=== PATIENT | female | born 1995 | race Caucasian/White ===

== ENCOUNTER 2022-01-08 08:28 | Inpatient (IN) ==
[2022-01-08] MEDS ORDERED: PENICILLIN G POTASSIUM 6 MU in DEXTROSE 5% 250 ML IV STA (09:06)
[2022-01-08] MEDS ORDERED: OXYTOCIN 30 UNITS/500 ML BAG IV PRN ×3 (09:06→17:48)
[2022-01-08] MEDS ORDERED: LACTATED RINGER'S 1,000 ML IV PRN (09:06)
[2022-01-08] MEDS ORDERED: LIDOCAINE 1% LOCAL 20 ML VIAL INFIL PRN (09:06)
--- NOTE | 2022-01-08 09:12 | History & Physical Report ---
Date of Service January 08, 2022 Assessment & Plan (1) Spontaneous rupture of amniotic membranes: Plan: 6-year-old -0-1-0 at 39 weeks of gestation presenting with spontaneous rupture of membranes, regular contractions, GBS positive, Vital signs stable afebrile, heart rate reassuring, Early labor with regular contractions, Plan to admit, monitor, labs, IV fluids, IV penicillin for GBS, expectant management for 2 to 3 hours and then recheck for possible augmentation with oxytocin, Epidural for pain per patient request, All questions were answered. (2) Uterine contractions: (3) GBS (group B Streptococcus carrier), +RV culture, currently : History of Present Illness Primary Care Provider: Joce Simmons MD Patient is a 26-year-old -0-1-0 at 39 weeks of gestation who has been feeling contractions since yesterday afternoon. She woke up with around 5 AM and also had a big gush of fluid leakage. Contractions became more regular and painful. She had minimal bleeding initially and then has been leaking clear fluids. She reports good movements. She denies fever, chills, headache, change in her vision, nausea or vomiting. Her has been uncomplicated except GBS positive. Allergies Allergy/AdvReac Type Severity Reaction Status Date / Time nickel Allergy Mild Rash Verified 12/26/21 21:55 grape Allergy Swelling Verified 12/26/21 21:55 of Lip/Tongue/Throat Home Medications Medication Instructions Recorded Confirmed Type vit no.95-ferrous 1 tab PO DAILY 05/29/20 12/26/21 History fumarate 28 mg-folic acid 800 mcg tablet () ferrous sulfate 325 mg (65 mg 325 mg PO DAILY 11/24/21 12/26/21 History iron) tablet (iron) Patient History Medical History Anxiety and depression No known health problems Surgical History H/O dilation and curettage [place] teeth removed Family History Grandfather (Maternal) Family history of diabetes mellitus Family history of esophageal cancer Other No family history of adverse response to anesthesia Social History Smoking Status: Former smoker Tobacco Type: Cigarettes Cigarettes Per Day: AWARE NOT TO SMOKE/NPO; Second Hand Exposure: Yes; Hx Alcohol Use: No Hx Substance Use: No Preferred Language: Romanian Communication Ability: Effective Visual Impairment: No Limitations Hearing Ability: Normal Wax Ball Molder Required: No Beliefs That Will Affect Care: None marital status: Current Living Situation: Spouse Current Living Situation Comment: 8yo daughter (FT- stepdaughter) 14yo son (PT stepson) current occupational status: unemployed and other current occupation: Homemaker Other Information That Helps Us Care for You: No Feels Safe at Home: Yes Safety Concerns: Feels Safe At This Time caffeine: Yes Dental Care, Regularly: Yes Physical Activity Frequency: Does not Exercise Seatbelt Use: always Sunscreen Use: Yes Do you think of yourself as: straight/heterosexual Sexual Activity: has been sexually active within the last 12 months Gender Identity: Female Assistive Devices: None Review of Systems as per Subjective / HPI Physical Exam Constitutional: WD/WN, vitals as above well developed, well nourished and + acute distress (With contractions only) Genitourinary: normal external appearance OB Exam Abdomen: + vertex Manual OB Exam: + cervical dilation 2 cm, + cervical effacement 50% and + station -2 OB Exam Monitor Tracing: + external uterine monitor used and + category I Patient came with a large pad which is heavy and nitrazine positive Results & Data ([facility]) Vital Signs (Past 12 Hours) Vital Signs Temp Pulse Resp BP 01/08/22 08:40 36.5 C 20 01/08/22 08:34 92 H 137/78
[2022-01-08 09:43] LABS: Hematocrit (blood only) 38.2 % (34.1-44.9); Hemoglobin 13.1 g/dl (12.0-16.0); Mean Corpuscular Hemoglobin 31.8 pg (25.0-34.0); Mean Corpuscular Hgb Conc 34.3 g/dL (32.0-36.0); Mean Corpuscular Volume 92.7 fL (80.0-100.0); Mean Platelet Volume 10.6 fL (9.4-12.3); Platelet Count 188 K/uL (130-400); RDW Coefficient of Variation 13.7 % (11.5-14.5); RDW Standard Deviation 46.4 fL (36.4-46.3); Red Blood Count 4.12 M/uL (3.93-5.22); White Blood Count 10.55 K/ul (4.8-10.8)
[2022-01-08 10:08] LABS: Alanine Aminotransferase 10 U/L (7-52); Albumin Globulin Ratio 1.2 (0.9-2); Albumin Level 3.7 gm/dl (3.4-5.0); Alkaline Phosphatase 173 U/L (34-104); Anion Gap 8 (3-11); Aspartate Aminotransferase 13 U/L (13-39); BUN Creatinine Ratio 25.6 (10-20); Bilirubin,Total 0.3 mg/dl (0.2-1.0); Blood Urea Nitrogen 11 mg/dl (6-23); Calcium 8.9 mg/dl (8.5-10.1); Carbon Dioxide 19 mmol/L (21-32); Chloride 107 mmol/L (98-107); Creatinine Clr Calc Pharmacy 213.5 ml/min; Est GFR (African American) > 150.0 ml/min; Est GFR (Non-African American) 140.4 ml/min; Globulin 3.1 gm/dl (2.5-4.0); Glucose 92 mg/dl (70-99(Fasting)); Sodium 134 mmol/L (136-145); Total Protein 6.8 gm/dl (6.0-8.3)
[2022-01-08] MEDS ORDERED: PENICILLIN G POTASSIUM 3 MU in DEXTROSE 5% 100 ML IV PRN (12:07)
[2022-01-08] MEDS ORDERED: SODIUM CHLORIDE 0.9% INJ 10 ML VIAL ONE (12:29)
[2022-01-08] MEDS ORDERED: BUPIVACAINE 0.25% 30 ML VIAL ONE (12:29)
[2022-01-08] MEDS ORDERED: LIDOCAINE 2%/EPINEPHRINE 1:200,000 20 ML SDV ONE (12:29)
[2022-01-08] MEDS ORDERED: ePHEDrine sulfate 50 MG/ML AMP ONE (12:29)
[2022-01-08] MEDS ORDERED: fentaNYL citrate 100 MCG/2 ML VIAL ONE (12:29)
[2022-01-08] MEDS ORDERED: fentaNYL 2MCG/ML ROPIVACAINE 1.25MG/ML 100 ML BAG EPI ONE (12:30)
[2022-01-08] MEDS ORDERED: PROMETHAZINE HCL 6.25 MG in SODIUM CHLORIDE 0.9% 50 ML IV PRN (13:20)
[2022-01-08] MEDS ORDERED: fentaNYL 2MCG/ML ROPIVACAINE 1.25MG/ML 100 ML BAG EPI PRN (13:20)
[2022-01-08] MEDS ORDERED: NALOXONE HCL 1 MG in SODIUM CHLORIDE 0.9% 1000ML 1,000 ML IV PRN (13:20)
[2022-01-08] MEDS ORDERED: ONDANSETRON INJ 2 MG/ML 2 ML VIAL IV PRN (13:20)
[2022-01-08] MEDS ORDERED: ePHEDrine sulfate 50 MG/ML AMP IV PRN (13:20)
[2022-01-08] MEDS ORDERED: diphenhydrAMINE 50 MG/ML VIAL IV PRN (13:20)
[2022-01-08] MEDS ORDERED: NALOXONE HCL 0.4 MG/1 ML VIAL/CARP IV PRN (13:20)
[2022-01-08] MEDS ORDERED: NALBUPHINE HCL INJ 10 MG/ML AMP IV PRN (13:20)
--- NOTE | 2022-01-08 13:20 | Anesthesiology Consultation ---
Date of Service January 08, 2022 Assessment & Plan Chart Review Chart Review: Patient NOT seen in Pre Admission Testing and Acceptable Risk for Labor Epidural Consults Requested none ASA ASA2 Proposed Anesthesia Anesthesia Type: Labor Epidural Risk / Benefits Reviewed With: PT / POA / Parent / Guardian, Accepts Plan and Informed Consent Obtained History Height/Weight Height: 5 ft 4 in Weight: 88.451 kg Allergies Allergy/AdvReac Type Severity Reaction Status Date / Time nickel Allergy Mild Rash Verified 01/08/22 11:09 grape Allergy Swelling Verified 01/08/22 11:09 of Lip/Tongue/Throat latex AdvReac Rash Verified 01/08/22 11:10 Medications Home Medications Medication Instructions Recorded Confirmed Last Taken vit no.95-ferrous 1 tab PO DAILY 05/29/20 01/08/22 01/07/22 12:00 fumarate 28 mg-folic acid 800 mcg tablet () ferrous sulfate 325 mg (65 mg 325 mg PO DAILY 11/24/21 01/08/22 01/07/22 12:00 iron) tablet (iron) Active Medications Generic Name Dose Route Start Last Admin Trade Name Desiree PRN Reason Stop Dose Admin Lactated Ringer's 1,000 mls @ 150 mls/hr 01/08/22 09:06 01/08/22 12:01 Lr IV 01/10/22 09:05 150 mls/hr .[id number] PRN Administration L&D Protocol Protocol Oxytocin 30 units in 500 mls @ 2 mls/hr 01/08/22 09:47 01/08/22 12:10 Pitocin IV 01/10/22 09:46 0.12 units/hr .Q24H PRN 2 mls/hr Labor Induction/Augmentation Administration Protocol 0.12 UNITS/HR Past Medical History Medical History Anxiety and depression No known health problems Exercise / Class Metabolic Activity II 4-5 Yardwork/Stairs/Walk up hill Past Family History Family History Grandfather (Maternal) Family history of diabetes mellitus Family history of esophageal cancer Other No family history of adverse response to anesthesia Past Surgical History Surgical History (Reviewed 01/08/22 @ 09:09 by JESSICA Cadena H/O dilation and curettage [place] teeth removed Past Anesthesia History No Hx of Anesthesia Complications and No Family Hx of Anesthesia Complications History of PONV No Hx of PONV and No Hx of Motion Sickness Social History Smoking Status: Former smoker tobacco type: cigarettes Smoking cigarettes per day: AWARE NOT TO SMOKE/NPO Hx Alcohol Use: No Hx Substance Use: No substance use type: does not use Physical Exam Vital Signs Last Vital Signs Temp 36.6 C 01/08/22 10:46 Pulse 104 H 01/08/22 13:16 Resp 20 01/08/22 10:46 BP 138/80 01/08/22 13:16 Pulse Ox 100 01/08/22 13:16 ENMT Mouth: no dentition abnormality Thyromental Distance: > or= 3.5 Finger Breadths Mallampati Class: II Neck normal visual inspection Respiratory normal respiratory effort Auscultation: lungs clear to auscultation bilaterally Cardiovascular Rate/Rhythm: regular rate and regular rhythm Psychiatric Orientation: alert Testing Laboratory Results 01/08/22 09:25 01/08/22 09:25
--- NOTE | 2022-01-08 15:46 | Obstetrical Progress Note ---
Date of Service January 08, 2022 Assessment & Plan Admission and Anticipated Discharge Date Admission Date: January 08, 2022 Subjective Patient is revaluated. Oxytocin was started and she has received epidural for pain. Feels pressure VSS Afebrile FHR categ I, started to have mild early decels with some of the contractions [place] ctxs q 2-3 min VE: 9/ 90%/ 0 Continue to monitor closely Anticipate . Results & Data ([facility]) Vital Signs (Past 12 Hours) Vital Signs Temp Pulse Resp BP Pulse Ox 01/08/22 08:40 36.5 C 20 01/08/22 15:41 99 01/08/22 15:41 100 H 01/08/22 15:39 100 H 01/08/22 15:39 117/71 01/08/22 15:36 100 01/08/22 15:36 98 H 01/08/22 15:31 99 01/08/22 15:31 90 01/08/22 15:26 100 01/08/22 15:26 91 H 01/08/22 15:25 85 01/08/22 15:25 110/61 01/08/22 15:24 90 01/08/22 15:24 94 H 01/08/22 15:21 100 01/08/22 15:21 91 H 01/08/22 15:16 98 01/08/22 15:16 87 01/08/22 15:11 100 01/08/22 15:11 93 H 01/08/22 15:10 97 H 01/08/22 15:10 96/61 L 01/08/22 15:06 100 01/08/22 15:06 110 H 01/08/22 15:01 100 01/08/22 15:01 97 H 01/08/22 14:56 100 01/08/22 14:56 82 01/08/22 14:56 108/66 01/08/22 14:51 100 01/08/22 14:51 98 H 01/08/22 14:35 20 01/08/22 14:35 20 01/08/22 14:46 100 01/08/22 14:46 80 01/08/22 14:41 100 01/08/22 14:41 88 01/08/22 14:41 95 H 01/08/22 14:41 96/60 L 01/08/22 14:36 100 01/08/22 14:36 91 H 01/08/22 12:52 36.8 C 01/08/22 13:20 20 01/08/22 13:20 20 01/08/22 13:35 20 01/08/22 13:35 20 01/08/22 13:50 20 01/08/22 13:50 20 01/08/22 14:05 20 01/08/22 14:05 20 01/08/22 14:20 20 01/08/22 14:20 20 01/08/22 14:31 100 01/08/22 14:31 95 H 01/08/22 14:26 100 01/08/22 14:26 76 01/08/22 14:25 101 H 01/08/22 14:25 101/64 01/08/22 14:21 100 01/08/22 14:21 81 01/08/22 14:16 100 01/08/22 14:16 80 01/08/22 14:11 100 01/08/22 14:11 98 H 01/08/22 14:11 105/68 01/08/22 14:06 100 01/08/22 14:06 103 H 01/08/22 14:01 100 01/08/22 14:01 98 H 01/08/22 13:56 100 01/08/22 13:56 88 01/08/22 13:56 112/67 01/08/22 13:51 100 01/08/22 13:51 97 H 01/08/22 13:46 100 01/08/22 13:46 99 H 01/08/22 13:41 100 01/08/22 13:41 107 H 01/08/22 13:41 96 H 01/08/22 13:41 118/83 01/08/22 13:36 100 01/08/22 13:36 114 H 01/08/22 13:31 100 01/08/22 13:31 106 H 01/08/22 13:26 100 01/08/22 13:26 123 H 01/08/22 13:24 113 H 01/08/22 13:24 135/76 01/08/22 13:21 100 01/08/22 13:21 107 H 01/08/22 13:19 100 H 01/08/22 13:19 132/88 01/08/22 13:16 100 01/08/22 13:16 104 H 01/08/22 13:16 138/80 01/08/22 13:14 116 H 01/08/22 13:14 143/79 H 01/08/22 13:12 109 H 01/08/22 13:12 163/82 H 01/08/22 13:11 100 01/08/22 13:11 99 H 01/08/22 13:11 125/78 01/08/22 13:06 100 01/08/22 13:06 100 H 01/08/22 13:01 100 01/08/22 13:01 86 01/08/22 12:56 100 01/08/22 12:56 78 01/08/22 12:51 100 01/08/22 12:51 84 01/08/22 12:46 100 01/08/22 12:46 87 01/08/22 12:46 90 01/08/22 12:46 139/84 01/08/22 12:09 93 H 01/08/22 12:09 132/89 01/08/22 10:46 20 01/08/22 10:46 36.6 C 20 01/08/22 10:49 90 01/08/22 10:49 133/90 01/08/22 08:34 92 H 137/78
[2022-01-08] MEDS ORDERED: MINERAL OIL 30 ML UDC ONE ×2 (17:10→17:25)
[2022-01-08] MEDS ORDERED: DIPHTHERIA/TETANUS/PERTUSSIS 0.5 ML SYR/VIAL IM ONE (17:48)
[2022-01-08] MEDS ORDERED: HYDROCORTISONE ACETATE 25 MG SUPP PR PRN (17:48)
[2022-01-08] MEDS ORDERED: bisacodyL 10 MG SUPP PR PRN (17:48)
[2022-01-08] MEDS ORDERED: miSOPROStoL 200 MCG TAB PR ONE (17:48)
[2022-01-08] MEDS ORDERED: MEASLES, MUMPS & RUBELLA VIRUS VIAL SQ ONE (17:48)
[2022-01-08] MEDS ORDERED: BENZOCAINE 20% AER SPR 82.5 GM CAN EXT PRN (17:48)
--- NOTE | 2022-01-08 17:52 | Delivery Summary ---
Vaginal Delivery Summary Date of Service January 08, 2022 Vaginal Delivery Summary Patient was found to be fully dilated and desired to push. She pushed through several contractions and delivered the head difficulty. There was a nuchal cord around the neck x1 which was reduced. Then the shoulders were treated with delivered with minimal traction and the baby was handed to mother that her mouth and nose were suctioned, the cord was clamped times and cut at 1 minute delay. The baby was vigorously moving and crying at that point. The cord blood was obtained. The vagina and perineum were checked for lacerations. there was only first-degree labial laceration on both sides but the vagina and perineum were intact. Post labial lacerations were repaired with 3-0 Vicryl on SH needle in a continuous fashion and excellent hemostasis was achieved. The placenta was found to be in vagina, delivered spontaneously as intact and complete. Uterus was explored and found to be empty, lower segment was cleared of all clots and debris's, fundus was firm and EBL was 200 mL. Mom and baby tolerated procedure well. Sponge needle and instrument count was correct x2. There was a viable female infant, Apgars 8/9 and weight is pending. No complications happened and I was present during whole procedure.
--- NOTE | 2022-01-08 19:14 | Anesthesia Procedure Note ---
Date of Service January 08, 2022 Anesthesia Post Epidural Note Vital Signs Vital Signs: Temp Pulse Resp BP Pulse Ox 36.7 C 116 H 20 117/57 L 100 01/08/22 16:50 01/08/22 18:47 01/08/22 18:32 01/08/22 18:47 01/08/22 17:31 Notes Mental Status: alert / awake / arousable Nausea / Vomiting: adequately controlled Pain: adequately controlled Airway Patency, RR, SpO2: stable & adequate BP & HR: stable & adequate Hydration State: stable & adequate Neuraxial Anesthesia: was administered and sensory block is resolving Anesthetic Complications: no major complications apparent and Pt Satisfied with anesthetic care Epidural: Removed without complications and With tip intact
[2022-01-08] MEDS: IBUPROFEN 600 MG TAB PO PRN (20:26)
[2022-01-08] MEDS: DOCUSATE SODIUM 100 MG CAP PO SCH (22:06)
[2022-01-09] MEDS ORDERED: MINERAL OIL LIGHT 10 ML BTL TOP ONE (00:04)
[2022-01-09] MEDS: IBUPROFEN 600 MG TAB PO PRN ×3 (00:06→19:51)
[2022-01-09 07:04] LABS: Hematocrit (blood only) 31.7 % (34.1-44.9); Hemoglobin 10.7 g/dl (12.0-16.0); Mean Corpuscular Hemoglobin 31.1 pg (25.0-34.0); Mean Corpuscular Hgb Conc 33.8 g/dL (32.0-36.0); Mean Corpuscular Volume 92.2 fL (80.0-100.0); Mean Platelet Volume 10.4 fL (9.4-12.3); Platelet Count 157 K/uL (130-400); RDW Coefficient of Variation 13.6 % (11.5-14.5); RDW Standard Deviation 45.6 fL (36.4-46.3); Red Blood Count 3.44 M/uL (3.93-5.22); White Blood Count 9.97 K/ul (4.8-10.8)
[2022-01-09] MEDS: DOCUSATE SODIUM 100 MG CAP PO SCH ×2 (08:46→19:51)
[2022-01-09] MEDS: PRENATAL VITAMIN 1 TAB PO SCH (08:46)
[2022-01-09] MEDS: FERROUS SULFATE 325 MG TAB PO SCH (08:46)
--- NOTE | 2022-01-09 10:38 | Obstetrical Progress Note ---
Date of Service January 09, 2022 Subjective Ambulation: ambulating normally Voiding: no voiding problems Passing Gas:: Yes Diet Tolerance:: regular diet Lochia:: Small Feeding Type:: breast feeding Current Pain Level(1-10): 0 doing well plans for d/c in AM Physical Exam Constitutional WD/WN, vitals as above Gastrointestinal (Abdomen) Inspection/Auscultation: abdomen normal to inspection fundus firm below U Musculoskeletal Extremities: extremities normal to inspection Neurologic patellar DTR's 2+ bilat, sensation intact Results & Data ([facility]) Vital Signs (Past 12 Hours) Vital Signs Temp Pulse Resp BP Pulse Ox O2 Del Method 01/09/22 09:00 36.3 C L 92 H 18 110/72 100 Room Air 01/09/22 03:40 36.4 C L 81 18 106/73 01/08/22 23:59 36.7 C 82 18 117/73 100 Room Air Laboratory Results Laboratory Results - last 72 hr 01/08/22 01/08/22 01/09/22 09:25 09:25 06:45 WBC 10.55 9.97 RBC 4.12 3.44 L Hgb 13.1 10.7 L Hct 38.2 31.7 L MCV 92.7 92.2 MCH 31.8 31.1 MCHC 34.3 33.8 RDW Std Deviation 46.4 H 45.6 RDW Coeff of Yfn 13.7 13.6 Plt Count 188 157 MPV 10.6 10.4 Sodium 134 L Potassium 4.0 Chloride 107 Carbon Dioxide 19 L Anion Gap 8 BUN 11 Creatinine 0.43 L Est Cr Clr Drug Dosing 213.5 Est GFR ( Amer) > 150.0 Est GFR (Non-Af Amer) 140.4 BUN/Creatinine Ratio 25.6 H Glucose 92 Calcium 8.9 Total Bilirubin 0.3 AST 13 ALT 10 Alkaline Phosphatase 173 H Total Protein 6.8 Albumin 3.7 Globulin 3.1 Albumin/Globulin Ratio 1.2
[2022-01-09] MEDS: ACETAMINOPHEN 325 MG TAB PO PRN ×2 (15:45→21:34)
[2022-01-09] MEDS ORDERED: bisacodyL 5 MG TABEC PO SCH (20:00)
[2022-01-10] MEDS: IBUPROFEN 600 MG TAB PO PRN ×3 (00:17→12:36)
[2022-01-10 07:42] LABS: Hematocrit (blood only) 32.7 % (34.1-44.9); Hemoglobin 10.9 g/dl (12.0-16.0)
[2022-01-10] MEDS: DOCUSATE SODIUM 100 MG CAP PO SCH (08:50)
[2022-01-10] MEDS: ACETAMINOPHEN 325 MG TAB PO PRN (08:50)
[2022-01-10] MEDS: FERROUS SULFATE 325 MG TAB PO SCH (08:50)
[2022-01-10] MEDS: PRENATAL VITAMIN 1 TAB PO SCH (08:50)
--- NOTE | 2022-01-10 12:53 | Obstetrical Progress Note ---
Date of Service January 10, 2022 Assessment & Plan Plan PPD #2 pt doing well anticipate dish Results & Data ([facility]) Vital Signs (Past 12 Hours) Vital Signs Temp Pulse Resp BP Pulse Ox O2 Del Method 01/10/22 08:30 36.3 C L 89 16 116/75 99 Room Air
== END 2022-01-10 14:49 | disposition home or self-care (01) | DRG 807 ==
LOC: OPB 08:28 → 4S1 08:32 → 4E2 21:28
DX: Z37.0 Single live birth; O70.0 First degree perineal laceration during delivery; O99.824 Streptococcus B carrier state complicating childbirth; O69.81X0 Labor and delivery complicated by cord around neck, without compression, not applicable or unspecified; Z3A.39 39 weeks gestation of pregnancy

== ENCOUNTER 2023-12-24 20:19 | Observation (INO) ==
[2023-12-24] MEDS: KETOROLAC TROMETHAMINE 15 MG/ML VIAL IV ONE (20:41)
[2023-12-24 21:14] LABS: Alanine Aminotransferase 15 U/L (7-52); Albumin Globulin Ratio 1.8 (0.9-2); Albumin Level 4.6 gm/dl (3.4-5.0); Alkaline Phosphatase 47 U/L (34-104); Anion Gap 6 (3-11); Aspartate Aminotransferase 15 U/L (13-39); BUN Creatinine Ratio 14.1 (10-20); Basophils # (auto) 0.03 K/uL (0.00-0.20); Basophils % (auto) 0.5 %; Bilirubin,Total 0.4 mg/dl (0.2-1.0); Blood Urea Nitrogen 11 mg/dl (6-23); Carbon Dioxide 25 mmol/L (21-32); Chloride 104 mmol/L (98-107); Eosinophils % (auto) 1.5 %; Globulin 2.6 gm/dl (2.5-4.0); Glucose 109 mg/dl (70-99(Fasting)); Hematocrit (blood only) 40.9 % (37.0-47.0); Hemoglobin 13.6 g/dl (12.0-16.0); Immature Granulocytes # (auto) 0.01 K/uL (0.01-0.20); Immature Granulocytes % (auto) 0.2 %; Lymphocytes # (auto) 1.82 K/uL (1.20-3.40); Mean Corpuscular Hemoglobin 30.8 pg (25.0-34.0); Mean Corpuscular Hgb Conc 33.3 g/dL (32.0-36.0); Mean Corpuscular Volume 92.7 fL (80.0-100.0); Mean Platelet Volume 10.1 fL (9.4-12.4); Monocytes # (auto) 0.49 K/uL (0.11-0.59); Monocytes % (auto) 7.5 %; Neutrophils # (auto) 4.06 K/uL (1.40-6.50); Neutrophils % (auto) 62.3 %; Platelet Count 237 K/uL (130-400); Potassium 4.1 mmol/L (3.5-5.1); RDW Standard Deviation 41.1 fL (36.4-46.3); Red Blood Count 4.41 M/uL (4.20-5.40); Sodium 135 mmol/L (136-145); Total Protein 7.2 gm/dl (6.0-8.3); White Blood Count 6.51 K/ul (4.8-10.8)
[2023-12-24 21:27] LABS: Appearance Urine Cloudy (Clear); Bacteria Urine Automated None Seen (None Seen); Bilirubin Urine Negative (Negative); Blood Urine 2+ (Negative); Cast Urine Automated 0-2 /lpf (0-2); Color Urine Yellow; Glucose Urine UA Negative (Negative); Ketones Urine Negative (Negative); Leukocyte Esterase Urine 3+ (Negative); Nitrite Urine Negative (Negative); Protein Urine Negative (Negative); RBC Urine Automated >20 /hpf (0-2); Specific Gravity Urine 1.012 (1.000-1.030); Urobilinogen Urine Negative (Negative); WBC Urine Automated 21-50 /hpf (0-5); pH Urine 7.5 (4.5-7.5)
--- NOTE | 2023-12-24 21:37 | Emergency Department Note ---
Impression & Plan Right flank pain, Dysuria, Failure of outpatient treatment ED Provider Note NAME: ZULY GREGG AGE: 28 SEX: F : 1995 ARRIVES VIA: Walk-In INFORMANT: [Patient] ED PROVIDER(S): [Wellington Gomez MD] CHIEF COMPLAINT: Back pain HISTORY OF PRESENT ILLNESS: The patient is a 28-year-old female who was seen here 4 days ago for similar symptoms. She states that despite the cefdinir that was prescribed, she feels really no better and now the pain is not only in the low back and right flank but also in her right buttock. The patient states she feels fatigued and her urine has been dark. She feels like sometimes, she has a hard time making her urine. No incontinence. There was no fall, no trauma. There has been no fever. No cough or congestion. With her last ED visit, her laboratory work was unrevealing. CT imaging of the abdomen/pelvis was unrevealing with the exception of a left lower pelvic ovarian cyst which the patient already knew was present. The patient states that she started her menstrual cycle yesterday, she is not sure if this made things worse. PMHx/PSHx/Social Hx: See Below PHYSICAL EXAM: GENERAL: Patient is in no acute distress. HEENT: No acute trauma, normocephalic atraumatic, mucous membranes moist, no nasal congestion. NECK: No stridor, no adenopathy, no meningismus, trachea is midline. LUNGS: Clear to auscultation bilaterally, no wheeze, no rhonchi, breath sounds equal. HEART: Without murmurs gallops or rubs, regular rate and rhythm. ABDOMEN: Soft, mildly tender in the lower pelvis bilaterally, no distention. EXTREMITIES: No cyanosis, full range of motion of all the joints without pain or difficulty. NEUROLOGIC: Oriented x 3, no acute motor or sensory deficits, no focal weakness. 2/4 patellar and Achilles reflexes on the right. The right great toe strength is intact with dorsiflexion. Normal plantarflexion strength also noted on the right. SKIN: No jaundice, no diaphoresis. Back: She is tender to palpate the right lumbar musculature and musculature of the right flank. Vaginal: No external discharge or vaginal lesions seen. The cervix appears unremarkable. Cultures were obtained. DIFFERENTIAL DIAGNOSIS: Lumbar strain, pyelonephritis, failed outpatient management, disc herniation, sciatica, PID, musculoskeletal pain, among others. EMERGENCY DEPARTMENT PROCEDURES: MEDICAL DECISION MAKING: There is no leukocytosis or anemia. There is a normal platelet count. Sodium slightly low but not in need of emergent correction. No renal failure. No concerning liver enzyme elevation. testing is negative. Urinalysis does suggest infection. GC, chlamydia and trichomonas testing is pending. Vaginal culture is pending. Renal ultrasound did not show hydronephrosis. Pelvic ultrasound showed a left ovarian cyst which has been documented before. On exam, the patient was not toxic or febrile. She did have pain with palpation of the right lumbar musculature. She complained of some pain into the right buttock, reflexes in the right lower extremity were normal and her strength in the right lower extremity was normal. The patient was given IV saline for hydration. She received IV Zofran, IV morphine, IV Tylenol. She was given IV Toradol and eventually, a dose of IV Levaquin as additional antibiotic coverage. At this point, I do think the patient observed hospitalization. Her symptoms have worsened, she has not improved on the cefdinir. Her urine still appears infected. Of note, the urine culture from a few days ago never grew any individual organism. Certainly, muscle spasm, nerve management, lumbar disc disease is a consideration as well. PID is a possibility. I spoke with the patient and case management, the on-call hospitalist was consulted. Prior/Outside records/notes reviewed: Previous ED visit note describing her presentation, findings on workup and plan outpatient. Imaging/x-ray results per my interpretation: Chronic Medical/Social conditions affecting care: None Care/Management discussed with: Case management, the on-call hospitalist. Level of care consideration(s): After review of the information above and other included data: --I believe the patient requires escalation of care to admission DISPOSITION: Admission Past Med/Surg History Problem List (Updated 12/25/23 @ 01:45 by Wellington Gomez MD) Failure of outpatient treatment (Acute) Dysuria (Acute) Right flank pain (Acute) Ovarian cyst (Acute) Pyelonephritis (Acute) Acute right flank pain (Acute) Vaginal bleeding (Acute) Incomplete (Acute) GBS (group B Streptococcus carrier), +RV culture, currently Uterine contractions Spontaneous rupture of amniotic membranes Vaginal discharge during No leakage of amniotic fluid into vagina Encounter for pre-operative examination Medical History Anxiety and depression Surgical History (Updated 09/15/23 @ 00:06 by Riley Martinez) H/O dilation and curettage [place] teeth removed Family History Grandfather (Maternal) Family history of diabetes mellitus Family history of esophageal cancer Other No family history of adverse response to anesthesia Social History Smoking Status: Never smoker Tobacco Type: E-cigarettes / Vaping Cigarettes Per Day: AWARE NOT TO SMOKE/NPO; Second Hand Exposure: Yes; Do You Dip or Chew Tobacco: No; Hx Alcohol Use: No Hx Substance Use: No Preferred Language: Pashto Communication Ability: Effective Visual Impairment: No Limitations Hearing Ability: Normal [facility] Counselor Required: No Beliefs That Will Affect Care: None marital status: Current Living Situation: Spouse Current Living Situation Comment: 8yo daughter (FT- stepdaughter) 14yo son (PT stepson) current occupational status: unemployed and other current occupation: Homemaker Feels Safe at Home: Yes Diet: regular caffeine: Yes Dental Care, Regularly: Yes Physical Activity Frequency: Does not Exercise Seatbelt Use: always Sunscreen Use: Yes Do you think of yourself as: straight/heterosexual Sexual Activity: has been sexually active within the last 12 months Gender Identity: Female Assistive Devices: None Allergies Allergies Allergy/AdvReac Type Severity Reaction Status Date / Time nickel Allergy Mild Rash Verified 01/08/22 11:09 grape Allergy Swelling Verified 01/08/22 11:09 of Lip/Tongue/Throat shellfish derived Allergy Blister Unverified 12/25/23 00:10 latex AdvReac Rash Verified 01/08/22 11:10 Home Meds Home Medications Medication Instructions Recorded Confirmed alprazolam 0.25 mg tablet 0.25 mg PO DAILY PRN Anxiety 12/25/23 12/25/23 fluoxetine 40 mg capsule 40 mg PO QAM 12/25/23 12/25/23 Results & Data (ED) Vital Signs Vital Signs - 24 hr 12/24/23 20:30 12/24/23 21:18 12/24/23 21:30 Temperature 36.8 C Temperature Source Temporal Artery Scan Pulse Rate 93 H 75 Pulse Rate [Apical] 75 Pulse Rhythm [Apical] Regular Pulse Strength [Apical] Normal Respiratory Rate 16 16 16 Respiratory Effort / Characteristics Non-Labored Non-Labored Spontaneous Respiratory Depth Normal Normal Respiratory Pattern Regular Regular Blood Pressure 112/76 120/87 Blood Pressure [Left Arm] 116/61 Blood Pressure Mean 88 98 Blood Pressure Mean [Left Arm] 79 Pulse Oximetry 97 99 99 Oxygen Delivery Method Room Air Room Air Sepsis Recent Fever Within 48 Hours No Sepsis New/Unexplained Change in Mental Status N/A Sepsis Action Taken by Nursing No Action Required 12/24/23 22:00 12/24/23 23:30 12/25/23 00:12 Temperature Temperature Source Pulse Rate 61 69 78 Pulse Rate [Apical] Pulse Rhythm [Apical] Pulse Strength [Apical] Respiratory Rate 17 20 18 Respiratory Effort / Characteristics Respiratory Depth Respiratory Pattern Blood Pressure 116/70 108/65 126/75 Blood Pressure [Left Arm] Blood Pressure Mean 85 80 92 Blood Pressure Mean [Left Arm] Pulse Oximetry 99 100 99 Oxygen Delivery Method Room Air Room Air Sepsis Recent Fever Within 48 Hours Sepsis New/Unexplained Change in Mental Status Sepsis Action Taken by [facility] Medications Current Medication List: was personally reviewed by me Laboratory Data Attestation: I reviewed the patient's lab results. 12/24/23 20:42 12/24/23 20:42 Lab Results 12/24/23 12/24/23 12/24/23 Range/Units 20:40 20:42 23:30 WBC 6.51 (4.8-10.8) K/ul RBC 4.41 (4.20-5.40) M/uL Hgb 13.6 (12.0-16.0) g/dl Hct 40.9 (37.0-47.0) % MCV 92.7 (80.0-100.0) fL MCH 30.8 (25.0-34.0) pg MCHC 33.3 (32.0-36.0) g/dL RDW Std Deviation 41.1 (36.4-46.3) fL RDW Coeff of Yfn 12.0 (11.5-14.5) % Plt Count 237 (130-400) K/uL MPV 10.1 (9.4-12.4) fL Immature Gran % (Auto) 0.2 % Neut % (Auto) 62.3 % Lymph % (Auto) 28.0 % [place] % (Auto) 7.5 % Eos % (Auto) 1.5 % Baso % (Auto) 0.5 % Neut # (Auto) 4.06 (1.40-6.50) K/uL Lymph # (Auto) 1.82 (1.20-3.40) K/uL [place] # (Auto) 0.49 (0.11-0.59) K/uL Eos # (Auto) 0.10 (0.00-0.50) K/uL Baso # (Auto) 0.03 (0.00-0.20) K/uL Immature Gran # (Auto) 0.01 (0.01-0.20) K/uL Sodium 135 L (136-145) mmol/L Potassium 4.1 (3.5-5.1) mmol/L Chloride 104 (98-107) mmol/L Carbon Dioxide 25 (21-32) mmol/L Anion Gap 6 (3-11) BUN 11 (6-23) mg/dl Creatinine 0.78 (0.6-1.2) mg/dl Est Cr Clr Drug Dosing Not Reportable eGFR 106.03 BUN/Creatinine Ratio 14.1 (10-20) Glucose 109 H (70-99(Fasting)) mg/dl Calcium 9.0 (8.6-10.3) mg/dl Total Bilirubin 0.4 (0.2-1.0) mg/dl AST 15 (13-39) U/L ALT 15 (7-52) U/L Alkaline Phosphatase 47 (34-104) U/L Total Protein 7.2 (6.0-8.3) gm/dl Albumin 4.6 (3.4-5.0) gm/dl Globulin 2.6 (2.5-4.0) gm/dl Albumin/Globulin Ratio 1.8 (0.9-2) HCG, Qual Negative (Negative) Urine Color Yellow Urine Appearance Cloudy A (Clear) Urine pH 7.5 (4.5-7.5) Ur Specific [place] 1.012 (1.000-1.030) Urine Protein Negative (Negative) Urine Glucose (UA) Negative (Negative) Urine Ketones Negative (Negative) Urine Blood 2+ H (Negative) Urine Nitrite Negative (Negative) Urine Bilirubin Negative (Negative) Urine Urobilinogen Negative (Negative) Ur Leukocyte Esterase 3+ H (Negative) Urine WBC (Auto) 21-50 H (0-5) /hpf Urine RBC (Auto) >20 H (0-2) /hpf U Hyaline Cast (Auto) 0-2 (0-2) /lpf U Epithel Cells (Auto) 11-20 H (0-2) /hpf Urine Bacteria (Auto) None Seen (None Seen) Administered Medications Sodium Chloride (Nss) 1,000 mls @ 80 mls/hr IV .[id number] ONE Stop: 12/25/23 12:57 Last Admin: 12/25/23 01:36 Dose: 80 mls/hr Documented By: CHEYANNE Discontinued Medications Sodium Chloride (Nss) 1,000 mls @ 999 mls/hr IV .[id number] ONE Stop: 12/24/23 22:32 Last Infusion: 12/25/23 00:15 Dose: Infused Documented By: Admin: 12/24/23 21:39 Dose: 999 mls/hr Documented By: GRICEL Acetaminophen (Ofirmev) 1,000 mg in 100 mls @ 400 mls/hr IV NOW STA Stop: 12/24/23 21:46 Last Infusion: 12/24/23 22:23 Dose: Infused Documented By: Admin: 12/24/23 21:39 Dose: 400 mls/hr Documented By: GRICEL Levofloxacin/Dextrose (Levaquin/D5w) 500 mg in 100 mls @ 100 mls/hr IV NOW STA Stop: 12/25/23 00:36 Last Infusion: 12/25/23 01:36 Dose: Infused Documented By: Admin: 12/24/23 23:54 Dose: 100 mls/hr Documented By: CHEYANNE Ketorolac Tromethamine (Ketorolac Tromethamine 15 Mg/Ml Vial) 15 mg IV NOW ONE Stop: 12/24/23 20:39 Last Admin: 12/24/23 20:41 Dose: 15 mg Documented By: CHI Lidocaine (Lidocaine 5% 1 Patch) 1 patch TD NOW STA Stop: 12/25/23 01:02 Last Admin: 12/25/23 01:36 Dose: 1 patch Documented By: CHYEANNE Morphine Sulfate (Morphine Sulfate 4 Mg/Ml 1 Ml Carp\Vial) 4 mg IV NOW STA Stop: 12/24/23 21:33 Last Admin: 12/24/23 21:40 Dose: 4 mg Documented By: GRICEL Morphine Sulfate (Morphine Sulfate 4 Mg/Ml 1 Ml Carp\Vial) 4 mg IV NOW STA Stop: 12/24/23 23:38 Last Admin: 12/24/23 23:54 Dose: 4 mg Documented By: CHEYANNE Ondansetron HCl (Ondansetron Inj 2 Mg/Ml 2 Ml Vial) 4 mg IV NOW STA Stop: 12/24/23 21:33 Last Admin: 12/24/23 21:40 Dose: 4 mg Documented By: GRICEL Imaging Data Radiologist's Impression: Pelvis Ultrasound 12/24/23 21:32 Exam(s): US PELVIS EXAM: US Pelvis Transabdominal, Complete CLINICAL HISTORY: Reason for exam: pelvic pain, know cyst. TECHNIQUE: Real-time complete transabdominal pelvic ultrasound with image documentation. COMPARISON: CT abdomen pelvis dated 12/20/23 . FINDINGS: Uterus/cervix: Unremarkable. No myometrial mass. The uterus measures 8.4 x 3.2 x 5.3 cm. The endometrial stripe measures 0.6 cm in thickness. Right ovary: Unremarkable. Normal blood flow. The right ovary measures 2.2 x 2.8 x 1.9 cm. Left ovary: Unremarkable. Normal blood flow. The left ovary measures 4.5 x 2.2 x 2.9 cm. 2.5 x 1.3 x 2.7 cm follicle or collapsed cyst, likely decreased in size since the prior CT. Free fluid: No free fluid. Bladder: Unremarkable as visualized. Wall is normal thickness for degree of distention. IMPRESSION: 1. No evidence of acute abnormality. 2. 2.5 x 1.3 x 2.7 cm follicle or collapsed cyst, likely decreased in size since the prior CT. Electronically signed by: Teetee Montes De Oca M.D. 12/25/23 01:33 AM Renal Ultrasound 12/24/23 21:32 Exam(s): US RENAL EXAM: US Retroperitoneal Complete, Renal CLINICAL HISTORY: Reason for exam: right flank pain. TECHNIQUE: Real-time complete ultrasound of the retroperitoneum with image documentation. COMPARISON: Prior CT dated 12/20/2023 FINDINGS: Right kidney: Unremarkable. No stones. No hydronephrosis. The right kidney measures 12.2 cm in length. Left kidney: Unremarkable. No stones. No hydronephrosis. The left kidney measures 10.5 cm in length. Bladder: Bilateral ureteral jets visualized. IMPRESSION: No acute findings in the retroperitoneum. Electronically signed by: Teetee Montes De Oca M.D. 12/25/23 01:27 AM Discharge Plan Visit Data Chief Complaint: Back Injury/Pain Stated Complaint: LOWER BACK PAIN,SX GETTING WORSE ED Provider: Wellington Gomez Discharge Problem: Right flank pain, Dysuria, Failure of outpatient treatment Patient Disposition: Admitted As Inpatient Condition: Fair Forms Stand Alone Forms: [facility] Prescriptions Prescriptions: No Action fluoxetine 40 mg capsule 40 mg PO QAM alprazolam 0.25 mg tablet 0.25 mg PO DAILY PRN (Reason: Anxiety) Referrals Referrals: Javier Alexandre MD [Primary Care Provider] -
[2023-12-24] MEDS: ACETAMINOPHEN 1,000 MG/100 ML VIAL IV STA (21:39)
[2023-12-24] MEDS: SODIUM CHLORIDE 0.9% 1,000 ML IV ONE (21:39)
[2023-12-24] MEDS: ONDANSETRON INJ 2 MG/ML 2 ML VIAL IV STA (21:40)
[2023-12-24] MEDS: MoRPHine SULFATE 4 MG/ML 1 ML CARP\\VIAL IV STA ×2 (21:40→23:54)
[2023-12-24] MEDS: levoFLOXacin/D5W 500 MG/100 ML BAG IV STA (23:54)
[2023-12-24 23:56] LABS: Pregnancy Test, Serum Negative (Negative)
--- NOTE | 2023-12-25 00:48 | History & Physical Report ---
Date of Service December 25, 2023 Assessment & Plan (1) Back pain: Plan: Multifactorial: ? Persistent cystitis/UTI, no sepsis for now Possible lumbar radiculopathy given sciatica description/exam bronchial asthma, stable anxiety/mood disorder, at baseline past tobacco abuse OBS GMF Analgesia Urine CS, Cipro course CT lumbar spine Lidoderm patch trial for possible lumbar radiculopathy PT eval DVT prophylaxis. SCDs Full code Text document was generated using [employer] voice recognition software. It may contain grammatical or spelling errors. Kindly contact undersigned for clarification of any documentation item in question. History of Present Illness Chief Complaint: Worsening back pain Primary Care Provider: Javier Alexandre MD History obtained from patient and records. Medical history significant for bronchial asthma, anxiety/mood disorder, migraine, past tobacco abuse. 1 week history of achy right flank/abdominal pain associated with hematuria and dysuria symptoms. Some radiation to the right leg. Some nausea without vomiting. No fever. No recollection of trauma or unusual exertion. Patient seen at [facility] [address] abdomen pelvis showed patient discharged on 1. No ureteral stone or obstructive uropathy. 2. Left ovarian cyst measuring 4.8 cm. Patient discharged on cefdinir course. Final urine CS polymicrobial growth. Patient return to ER for worsening symptoms. No headache, no chest pain, no SOB. Levaquin given at the ER for possible UTI. Medical History as above Surgical History : Tonsillectomy Family History : Endometriosis, asthma, hypertension Personal/Social history : Past tobacco abuse, occasional EtOH intake, equipment coordinator Allergies Allergy/AdvReac Type Severity Reaction Status Date / Time nickel Allergy Mild Rash Verified 01/08/22 11:09 grape Allergy Swelling Verified 01/08/22 11:09 of Lip/Tongue/Throat shellfish derived Allergy Blister Unverified 12/25/23 00:10 latex AdvReac Rash Verified 01/08/22 11:10 Home Medications Medication Instructions Recorded Confirmed Type alprazolam 0.25 mg tablet 0.25 mg PO DAILY PRN Anxiety 12/25/23 12/25/23 History fluoxetine 40 mg capsule 40 mg PO QAM 12/25/23 12/25/23 History Past Med/Surg History Problem List (Updated 12/25/23 @ 06:16 by Jonny Angulo MD) Back pain Failure of outpatient treatment (Acute) Dysuria (Acute) Right flank pain (Acute) Ovarian cyst (Acute) Pyelonephritis (Acute) Acute right flank pain (Acute) Vaginal bleeding (Acute) Incomplete (Acute) GBS (group B Streptococcus carrier), +RV culture, currently Uterine contractions Spontaneous rupture of amniotic membranes Vaginal discharge during No leakage of amniotic fluid into vagina Encounter for pre-operative examination Medical History Anxiety and depression Surgical History (Updated 09/15/23 @ 00:06 by Riley Martinez) H/O dilation and curettage [place] teeth removed Family History Grandfather (Maternal) Family history of diabetes mellitus Family history of esophageal cancer Other No family history of adverse response to anesthesia Social History Smoking Status: Never smoker Tobacco Type: E-cigarettes / Vaping Cigarettes Per Day: AWARE NOT TO SMOKE/NPO; Second Hand Exposure: Yes; Do You Dip or Chew Tobacco: No; Hx Alcohol Use: No Hx Substance Use: No Preferred Language: Serbian Communication Ability: Effective Visual Impairment: No Limitations Hearing Ability: Normal Stocking Inspector Required: No Beliefs That Will Affect Care: None marital status: Current Living Situation: Significant Other Current Living Situation Comment: 8yo daughter (FT- stepdaughter) 14yo son (PT stepson) current occupational status: unemployed and other current occupation: Homemaker Other Information That Helps Us Care for You: No Feels Safe at Home: Yes Safety Concerns: Feels Safe At This Time Diet: regular caffeine: Yes Dental Care, Regularly: Yes Physical Activity Frequency: Does not Exercise Seatbelt Use: always Sunscreen Use: Yes Do you think of yourself as: straight/heterosexual Sexual Activity: has been sexually active within the last 12 months Gender Identity: Female Assistive Devices: None Review of Systems Review of Systems: As per HPI, all other systems reviewed and negative Physical Exam Physical Exam: GENERAL: Slightly uncomfortable, slightly anxious, pleasant, no respiratory distress SKIN: Normal color, warm HEENT: [place] palpebral conjunctivae, no ptosis, dry buccal mucosa NECK : Supple, no tenderness CHEST : CTA, no tenderness HEART : RRR, no obvious murmurs ABDOMEN: Some distention, minimal hypogastric tenderness BACK : Low back tenderness, equivocal SLR right EXTREMITIES : No LE swelling/tenderness, no other conspicuous deformities noted NEUROLOGIC : Coherent, no facial asymmetry, no other gross focality Results & Data Results & Data Vital Signs (Past 12 Hours) Vital Signs Temp Pulse Pulse Resp BP BP Pulse Ox 12/25/23 00:12 78 18 126/75 99 12/24/23 23:30 69 20 108/65 100 12/24/23 22:00 61 17 116/70 99 12/24/23 21:30 75 16 120/87 99 12/24/23 21:18 75 16 116/61 99 12/24/23 20:30 36.8 C 93 H 16 112/76 97 O2 Del Method 12/25/23 00:12 Room Air 12/24/23 23:30 Room Air 12/24/23 22:00 12/24/23 21:30 12/24/23 21:18 Room Air 12/24/23 20:30 Room Air Laboratory Results Laboratory Results WBC 6.51 K/ul (4.8-10.8) 12/24/23 20:42 RBC 4.41 M/uL (4.20-5.40) 12/24/23 20:42 Hgb 13.6 g/dl (12.0-16.0) 12/24/23 20:42 Hct 40.9 % (37.0-47.0) 12/24/23 20:42 MCV 92.7 fL (80.0-100.0) 12/24/23 20:42 MCH 30.8 pg (25.0-34.0) 12/24/23 20:42 MCHC 33.3 g/dL (32.0-36.0) 12/24/23 20:42 RDW Std Deviation 41.1 fL (36.4-46.3) 12/24/23 20:42 RDW Coeff of Yfn 12.0 % (11.5-14.5) 12/24/23 20:42 Plt Count 237 K/uL (130-400) 12/24/23 20:42 MPV 10.1 fL (9.4-12.4) 12/24/23 20:42 Immature Gran % (Auto) 0.2 % 12/24/23 20:42 Neut % (Auto) 62.3 % 12/24/23 20:42 Lymph % (Auto) 28.0 % 12/24/23 20:42 [place] % (Auto) 7.5 % 12/24/23 20:42 Eos % (Auto) 1.5 % 12/24/23 20:42 Baso % (Auto) 0.5 % 12/24/23 20:42 Neut # (Auto) 4.06 K/uL (1.40-6.50) 12/24/23 20:42 Lymph # (Auto) 1.82 K/uL (1.20-3.40) 12/24/23 20:42 [place] # (Auto) 0.49 K/uL (0.11-0.59) 12/24/23 20:42 Eos # (Auto) 0.10 K/uL (0.00-0.50) 12/24/23 20:42 Baso # (Auto) 0.03 K/uL (0.00-0.20) 12/24/23 20:42 Immature Gran # (Auto) 0.01 K/uL (0.01-0.20) 12/24/23 20:42 Sodium 135 mmol/L (136-145) L 12/24/23 20:42 Potassium 4.1 mmol/L (3.5-5.1) 12/24/23 20:42 Chloride 104 mmol/L (98-107) 12/24/23 20:42 Carbon Dioxide 25 mmol/L (21-32) 12/24/23 20:42 Anion Gap 6 (3-11) 12/24/23 20:42 BUN 11 mg/dl (6-23) 12/24/23 20:42 Creatinine 0.78 mg/dl (0.6-1.2) 12/24/23 20:42 Est Cr Clr Drug Dosing Not Reportable 12/24/23 20:42 eGFR 106.03 12/24/23 20:42 BUN/Creatinine Ratio 14.1 (10-20) 12/24/23 20:42 Glucose 109 mg/dl (70-99(Fasting)) H 12/24/23 20:42 Calcium 9.0 mg/dl (8.6-10.3) 12/24/23 20:42 Total Bilirubin 0.4 mg/dl (0.2-1.0) 12/24/23 20:42 AST 15 U/L (13-39) 12/24/23 20:42 ALT 15 U/L (7-52) 12/24/23 20:42 Alkaline Phosphatase 47 U/L (34-104) 12/24/23 20:42 Total Protein 7.2 gm/dl (6.0-8.3) 12/24/23 20:42 Albumin 4.6 gm/dl (3.4-5.0) 12/24/23 20:42 Globulin 2.6 gm/dl (2.5-4.0) 12/24/23 20:42 Albumin/Globulin Ratio 1.8 (0.9-2) 12/24/23 20:42 HCG, Qual Negative (Negative) 12/24/23 23:30 Urine Color Yellow 12/24/23 20:40 Urine Appearance Cloudy (Clear) A 12/24/23 20:40 Urine pH 7.5 (4.5-7.5) 12/24/23 20:40 Ur Specific [place] 1.012 (1.000-1.030) 12/24/23 20:40 Urine Protein Negative (Negative) 12/24/23 20:40 Urine Glucose (UA) Negative (Negative) 12/24/23 20:40 Urine Ketones Negative (Negative) 12/24/23 20:40 Urine Blood 2+ (Negative) H 12/24/23 20:40 Urine Nitrite Negative (Negative) 12/24/23 20:40 Urine Bilirubin Negative (Negative) 12/24/23 20:40 Urine Urobilinogen Negative (Negative) 12/24/23 20:40 Ur Leukocyte Esterase 3+ (Negative) H 12/24/23 20:40 Urine WBC (Auto) 21-50 /hpf (0-5) H 12/24/23 20:40 Urine RBC (Auto) >20 /hpf (0-2) H 12/24/23 20:40 U Hyaline Cast (Auto) 0-2 /lpf (0-2) 12/24/23 20:40 U Epithel Cells (Auto) 11-20 /hpf (0-2) H 12/24/23 20:40 Urine Bacteria (Auto) None Seen (None Seen) 12/24/23 20:40
[2023-12-25] MEDS ORDERED: ALPRAZolam 0.25 MG TABLET PO PRN (00:52)
--- NOTE | 2023-12-25 01:28 | Ultrasound Report ---
Exam(s): US RENAL EXAM: US Retroperitoneal Complete, Renal CLINICAL HISTORY: Reason for exam: right flank pain. TECHNIQUE: Real-time complete ultrasound of the retroperitoneum with image documentation. COMPARISON: Prior CT dated 12/20/2023 FINDINGS: Right kidney: Unremarkable. No stones. No hydronephrosis. The right kidney measures 12.2 cm in length. Left kidney: Unremarkable. No stones. No hydronephrosis. The left kidney measures 10.5 cm in length. Bladder: Bilateral ureteral jets visualized. IMPRESSION: No acute findings in the retroperitoneum. Electronically signed by: Teetee Montes De Oca M.D. 12/25/23 01:27 AM
--- NOTE | 2023-12-25 01:34 | Ultrasound Report ---
Exam(s): US PELVIS EXAM: US Pelvis Transabdominal, Complete CLINICAL HISTORY: Reason for exam: pelvic pain, know cyst. TECHNIQUE: Real-time complete transabdominal pelvic ultrasound with image documentation. COMPARISON: CT abdomen pelvis dated 12/20/23 . FINDINGS: Uterus/cervix: Unremarkable. No myometrial mass. The uterus measures 8.4 x 3.2 x 5.3 cm. The endometrial stripe measures 0.6 cm in thickness. Right ovary: Unremarkable. Normal blood flow. The right ovary measures 2.2 x 2.8 x 1.9 cm. Left ovary: Unremarkable. Normal blood flow. The left ovary measures 4.5 x 2.2 x 2.9 cm. 2.5 x 1.3 x 2.7 cm follicle or collapsed cyst, likely decreased in size since the prior CT. Free fluid: No free fluid. Bladder: Unremarkable as visualized. Wall is normal thickness for degree of distention. IMPRESSION: 1. No evidence of acute abnormality. 2. 2.5 x 1.3 x 2.7 cm follicle or collapsed cyst, likely decreased in size since the prior CT. Electronically signed by: Teetee Montes De Oca M.D. 12/25/23 01:33 AM
[2023-12-25] MEDS: LIDOCAINE 5% 1 PATCH TD STA (01:36)
[2023-12-25] MEDS: SODIUM CHLORIDE 0.9% 1,000 ML IV ONE (01:36)
[2023-12-25] MEDS: oxyCODONE HCL IR 5 MG TAB (IMMEDIATE RELEASE) PO PRN (02:59)
--- NOTE | 2023-12-25 03:38 | CT Scan Report ---
Exam(s): CT L SPINE EXAM: CT Lumbar Spine Without Intravenous Contrast CLINICAL HISTORY: Reason for exam: sciatica. TECHNIQUE: Axial computed tomography images of the lumbar spine without intravenous contrast. CTDI is 23.36 mGy and DLP is 679.42 mGy-cm. Automated exposure control was utilized for the study. A dose lowering technique was utilized adhering to the principles of ALARA. COMPARISON: No relevant prior studies available. FINDINGS: Vertebrae: Unremarkable. No acute fracture. Discs/spinal canal/neural foramina: No acute findings. No spinal canal stenosis. Soft tissues: Unremarkable. IMPRESSION: No evidence of acute abnormality. Electronically signed by: Teetee Montes De Oca M.D. 12/25/23 03:37 AM
[2023-12-25 04:53] LABS: Basophils # (auto) 0.03 K/uL (0.00-0.20); Basophils % (auto) 0.4 %; Eosinophils % (auto) 1.5 %; Hemoglobin 12.9 g/dl (12.0-16.0); Immature Granulocytes # (auto) 0.02 K/uL (0.01-0.20); Immature Granulocytes % (auto) 0.3 %; Lymphocytes # (auto) 2.31 K/uL (1.20-3.40); Lymphocytes % (auto) 34.4 %; Mean Corpuscular Hemoglobin 31.7 pg (25.0-34.0); Mean Corpuscular Hgb Conc 33.9 g/dL (32.0-36.0); Mean Corpuscular Volume 93.4 fL (80.0-100.0); Mean Platelet Volume 10.3 fL (9.4-12.4); Monocytes # (auto) 0.69 K/uL (0.11-0.59); Monocytes % (auto) 10.3 %; Neutrophils # (auto) 3.56 K/uL (1.40-6.50); Neutrophils % (auto) 53.1 %; Platelet Count 222 K/uL (130-400); RDW Coefficient of Variation 12.1 % (11.5-14.5); RDW Standard Deviation 41.4 fL (36.4-46.3); Red Blood Count 4.07 M/uL (4.20-5.40); White Blood Count 6.71 K/ul (4.8-10.8)
[2023-12-25 05:10] LABS: BUN Creatinine Ratio 14.7 (10-20); Calcium 8.3 mg/dl (8.6-10.3); Creatinine Clr Calc Pharmacy 106.4 ml/min
[2023-12-25] MEDS: FLUoxetine HCL 20 MG CAP PO SCH (08:34)
[2023-12-25] MEDS: CIPROFLOXACIN 500 MG TAB PO SCH (08:34)
[2023-12-25] MEDS: PROMETHAZINE 6.25 MG/50.25 ML BAG IV PRN (11:32)
[2023-12-25] MEDS: ACETAMINOPHEN 325 MG TAB PO PRN (11:32)
[2023-12-25] MEDS: KETOROLAC TROMETHAMINE 15 MG/ML VIAL IV PRN (15:51)
--- NOTE | 2023-12-25 15:56 | Hospitalist Progress Note ---
Date of Service December 25, 2023 Assessment & Plan (1) Back pain: Plan: Multifactorial: Persistent cystitis/UTI, no sepsis for now UA suggestive of infection and the culture is showing pinpoint growth- has been reintubating Renal ultrasound and CT of the abdomen are unremarkable except left ovarian cyst of about 4.8 cm Has been on oral Cipro Possible lumbar radiculopathy given sciatica description/exam CT scan of the lumbar spine remained unremarkable Lidoderm patch trial for possible lumbar radiculopathy She has been getting Toradol as needed and also oxycodone for ongoing back pain Clinically no evidence of radiculopathy and/or any weakness involving the legs H/O bronchial asthma, stable Anxiety/mood disorder, at baseline Past tobacco abuse DVT prophylaxis. SCDs Full code Admission and Anticipated Discharge Date Admission Date: December 25, 2023 Subjective 12/25/2023 The patient was seen and examined in emergency room She has been complaining of back pain with radiation to right leg Has been feeling cold with shivering at times Has dysuria and frequency Review of Systems Review of Systems: all systems reviewed and are unremarkable except as noted below Physical Exam Physical Exam: Lying in bed without any acute distress Constitutional: + ill appearing and average body habitus Eyes: PERRL, conjunctivae normal, anicteric sclerae ENMT: external ear and nose normal, oropharynx normal Neck: trachea midline, no thyromegaly Respiratory: no respiratory distress Auscultation: lungs clear to auscultation bilaterally Cardiovascular: Rate/Rhythm: regular rate and regular rhythm; not tachycardic Heart Sounds: normal S1 and normal S2; no murmur Extremities: no edema Gastrointestinal (Abdomen): Inspection/Auscultation: normal bowel sounds; abdomen not distended Percussion/Palpation: abdomen soft; abdomen nontender Musculoskeletal: Minimal localized tenderness at the lumbar spine no evidence of radiculopathy Neurologic: normal touch/pain/proprioception and moves all extremities; no focal motor deficits Lymphatic: no cervical or axillary lymphadenopathy Results & Data Results & Data Vital Signs (Past 12 Hours) Vital Signs Temp Pulse Pulse Pulse Resp BP BP 12/25/23 15:34 36.6 C 70 14 116/79 12/25/23 14:42 73 14 100/71 12/25/23 11:26 75 12 86/65 L 12/25/23 07:36 64 12/25/23 06:12 68 16 103/59 L 12/25/23 06:00 70 20 12/25/23 04:24 66 15 Pulse Ox O2 Del Method 12/25/23 15:34 98 Room Air 12/25/23 14:42 98 Room Air 12/25/23 11:26 95 Room Air 12/25/23 07:36 12/25/23 06:12 12/25/23 06:00 97 12/25/23 04:24 Laboratory Results Short CBC 12/24/23 12/25/23 Range/Units 20:42 04:05 WBC 6.51 6.71 (4.8-10.8) K/ul Hgb 13.6 12.9 (12.0-16.0) g/dl Hct 40.9 38.0 (37.0-47.0) % Plt Count 237 222 (130-400) K/uL BMP 12/24/23 12/25/23 20:42 04:05 Sodium 135 L 137 Potassium 4.1 4.0 Chloride 104 108 H Carbon Dioxide 25 24 BUN 11 10 Creatinine 0.78 0.68 Glucose 109 H 97 Calcium 9.0 8.3 L Liver Function 12/24/23 Range/Units 20:42 Total Bilirubin 0.4 (0.2-1.0) mg/dl AST 15 (13-39) U/L ALT 15 (7-52) U/L Alkaline Phosphatase 47 (34-104) U/L Albumin 4.6 (3.4-5.0) gm/dl Urine 12/24/23 Range/Units 20:40 Urine Color Yellow Urine Appearance Cloudy A (Clear) Urine pH 7.5 (4.5-7.5) Ur Specific [place] 1.012 (1.000-1.030) Urine Protein Negative (Negative) Urine Glucose (UA) Negative (Negative) Medications Administered Current Inpatient Medications Acetaminophen (Acetaminophen 325 Mg Tab) 650 mg PO QID PRN PRN Reason: pain/fever Stop: 01/24/24 00:49 Last Admin: 12/25/23 11:32 Dose: 650 mg Alprazolam (Alprazolam 0.25 Mg Tablet) 0.25 mg PO TID PRN PRN Reason: Anxiety Stop: 01/24/24 00:51 Ciprofloxacin (Ciprofloxacin 500 Mg Tab) 500 mg PO BID [facility]; Protocol Stop: 12/30/23 08:59 Last Admin: 12/25/23 08:34 Dose: 500 mg Fluoxetine HCl (Fluoxetine Hcl 20 Mg Cap) 40 mg PO QAM [facility] Stop: 01/24/24 08:59 Last Admin: 12/25/23 08:34 Dose: 40 mg Promethazine HCl (Phenergan) 6.25 mg in 50.25 mls @ 201 mls/hr IV Q6H PRN PRN Reason: Nausea And Vomiting Stop: 01/24/24 00:49 Last Infusion: 12/25/23 11:58 Dose: Infused Ketorolac Tromethamine (Ketorolac Tromethamine 15 Mg/Ml Vial) 15 mg IV Q6H PRN PRN Reason: Pain Stop: 12/30/23 00:49 Last Admin: 12/25/23 15:51 Dose: 15 mg Lidocaine (Lidocaine 5% 1 Patch) 1 patch TD HS [facility] Stop: 01/24/24 20:59 Miscellaneous (Remove Lidoderm Patch) 1 each N/A DAILY@0900 [facility] Stop: 01/25/24 08:59 Oxycodone HCl (Oxycodone Hcl Ir 5 Mg Tab (Immediate Release)) 5 - 10 mg PO QID PRN PRN Reason: Pain Stop: 01/08/24 00:49 Last Admin: 12/25/23 02:59 Dose: 10 mg
[2023-12-25] MEDS: LIDOCAINE 5% 1 PATCH TD SCH (20:55)
[2023-12-25 23:26] VITALS: RESP 16
[2023-12-26 08:10] VITALS: BP 90/61; PULSE 78; TEMP 98.2; O2SAT 97
[2023-12-26] MEDS: FLUCONAZOLE 50 MG TAB PO ONE (09:58)
--- NOTE | 2023-12-26 11:09 | Discharge Summary ---
Discharge Summary Date of Service December 26, 2023 Principal Dx & Hospital Course #1 = Principal Diagnosis (1) SI (sacroiliac) joint dysfunction: (2) Ovarian cyst: (3) Dysuria: Plan Patient is a 28-year-old female presented to the emergency room with complaints of back pain and dysuria. Pain radiated down her buttocks and into the leg. She had been seen in the emergency room a few days prior was empirically being treated for a UTI. Patient was admitted to the hospital for concerns of possible failed treatment to her urinary tract infection. She was given some anti-inflammatories. Continue on antibiotics. Additional cultures did not grow any thing identifiable at this point. Patient's symptoms are really musculoskeletal.'s without tenderness right along the right SI joint. Patient was up and ambulatory. It seems as though really all of her symptomatology is musculoskeletal. She did start to complain of a vaginal yeast infection most likely due to the fact that she is on the antibiotics. She was given 1 dose of Diflucan here in the hospital. She will not need any additional antibiotics. Recommend NSAIDs and muscle relaxer. She be discharged home to follow-up with her outpatient PCP. Recommend outpatient physical therapy. Work note given for 1 week. May be extended if necessary by her PCP. Notes For Next Care Provider Medication Changes From Visit Flexeril and diclofenac added for her SI joint dysfunction Admission HPI Per Admitting Provider History obtained from patient and records. Medical history significant for bronchial asthma, anxiety/mood disorder, migraine, past tobacco abuse. 1 week history of achy right flank/abdominal pain associated with hematuria and dysuria symptoms. Some radiation to the right leg. Some nausea without vomiting. No fever. No recollection of trauma or unusual exertion. Patient seen at [facility] [address] abdomen pelvis showed patient discharged on 1. No ureteral stone or obstructive uropathy. 2. Left ovarian cyst measuring 4.8 cm. Patient discharged on cefdinir course. Final urine CS polymicrobial growth. Patient return to ER for worsening symptoms. No headache, no chest pain, no SOB. Levaquin given at the ER for possible UTI. Medical History as above Surgical History : Tonsillectomy Family History : Endometriosis, asthma, hypertension Personal/Social history : Past tobacco abuse, occasional EtOH intake, radiation therapy technician Admission Exam Per Admitting Provider See H&P Discharge Exam Constitutional: Alert HEENT: Mucous membranes moist. Lungs: Clear to auscultation, decreased, no wheezes rales or rhonchi CV: S1-S2, regular Abdomen: Soft, nontender, nondistended Extremities: No significant edema Neuro: No focal deficits Musculoskeletal: Tenderness bilateral SI joint right greater than left with some tissue bogginess and muscle spasms palpable Psych: Cooperative, normal mood Updated Medication List Medication Instructions Recorded Confirmed Type alprazolam 0.25 mg tablet 0.25 mg PO DAILY PRN Anxiety 12/25/23 12/25/23 History fluoxetine 40 mg capsule 40 mg PO QAM 12/25/23 12/25/23 History cyclobenzaprine 10 mg tablet 10 mg PO TID PRN muscle spasm #10 12/26/23 Rx tabs diclofenac potassium 50 mg tablet 50 mg PO BID PRN back pain #20 tabs 12/26/23 Rx lidocaine 5 % topical patch 1 patch transdermal HS 10 days #10 12/26/23 Rx ea Hospital Stay Data Consultations 12/25/23 00:09 ED Decision to Admit Stat Diagnostic Imagining Performed 12/24/23 21:32 US Renal Bladder [US renal/blad retro comp] Stat US pelvic complete Stat US transvaginal Stat 12/25/23 01:05 CT lumbar spine wo con Stat Reviewed imaging, laboratory and diagnostic studies. Pertinent findings as below. Cultures no specific growth to date Lumbar spine CT no acute pathology Renal and pelvic ultrasound unremarkable other than for known ovarian cyst Pending Results Patient Have Any Pending Studies at Discharge: No Discharge Instructions Given to Patient (Per Discharging Provider) Recommend outpatient physical therapy Total Time Total Time Spent Total Time Spent (In Minutes): 25
[2023-12-27 13:26] LABS: Chlam trach RNA(Genit,Ureth,Ur Not Detected (NotDetected); GC(Neis gon)RNA(Genit,Ureth,Ur Not Detected (NotDetected)
[2023-12-28 07:36] LABS: Trichomonas vag by NAA Invalid (NotDetected)
== END 2023-12-26 12:31 | disposition home or self-care (01) ==
LOC: ED 20:19 → EDINP 20:19 → SUATTDRO 12-25 00:49 → 3W 12-25 02:00